=== PATIENT | male | born 1965 | race Caucasian/White ===

== ENCOUNTER 2019-05-11 12:25 | Emergency (ER) | payer OTHER, MEDICAID, SELFPAY ==
[2019-05-11 12:30] VITALS: BP 146/88; PULSE 83; RESP 16; TEMP 36.1; O2SAT 98; BMI 26.3
[2019-05-11 14:25] LABS: Add Manual Diff / Slide Review NO; Basophils Absolute Auto 0 /uL (0-100); Basophils Percent Auto 0.9 % (0-2); Eosinophils Absolute Auto 100 /uL (0-450); Eosinophils Percent Auto 1.5 % (2-4); Hematocrit 43.8 % (41-53); Hemoglobin 15.1 g/dL (13.5-17.5); Lymphocytes Absolute Auto 1000 /uL (1100-4500); Lymphocytes Percent Auto 20.6 % (25-40); Mean Corpuscular HGB Conc 34.5 % (30-36); Mean Corpuscular Hemoglobin 31.4 PG (26-34); Monocytes Absolute Auto 500 /uL (0-900); Monocytes Percent Auto 9.8 % (3-14); Neutrophils Absolute Auto 3100 /uL (1500-7000); Neutrophils Percent Auto 67.2 % (50-75); Platelet Count 259 X10^3/uL (150-400); Red Blood Cell Count 4.81 X10^6/uL (4.5-5.9); Red Cell Distribution Width 13.9 % (11.6-14.8); White Blood Cell Count 4.7 X10^3/uL (4.5-11.0)
[2019-05-11 14:32] LABS: INR 0.9 (0.9-1.3); Prothrombin Time 10.4 SECONDS (10.1-12.7)
[2019-05-11 14:35] LABS: PTT Partial Thromboplastin Tim 34 SECONDS (26.4-36.2)
[2019-05-11 14:38] LABS: Alanine Aminotransferase 22 IU/L (21-72); Albumin 4.4 g/dL (3.5-5.0); Albumin Globulin Ratio 1.4 (1.0-2.8); Alkaline Phosphatase 60 U/L (38-126); Aspartate Aminotransferase 27 IU/L (17-59); BUN Creatinine Ratio 16.3 (6-22); Bilirubin Total 0.6 mg/dL (0.2-1.3); Blood Urea Nitrogen 13 mg/dL (9-20); Calcium 9.5 mg/dL (8.4-10.2); Carbon Dioxide 29 mmol/L (22-32); Chloride 102 mmol/L (98-107); Estimated Glomerular Filt Rate > 60.0 mL/min (>60); Globulin 3.1 g/dL (1.7-4.1); Glucose 113 mg/dL (70-100); HEMOLYSIS 21 (0-50); Potassium 4.5 mmol/L (3.4-5.1); Sodium 138 mmol/L (137-145); Total Protein 7.5 g/dL (6.3-8.2)
[2019-05-11 15:03] VITALS: BP 162/107; PULSE 83; RESP 15; O2SAT 96
--- NOTE | 2019-05-11 17:34 | ED_ITS ---
HPI - Epistaxis <LINDSEY Abarca - Last Filed: 05/11/19 17:45> General Chief complaint: Nasal Problem Stated complaint: bloody noses that wont stop Time Seen by Provider: 05/11/19 13:24 Source: patient and family Mode of arrival: Ambulatory Limitations: no limitations History of Present Illness HPI Narrative: The patient is a 54-year-old nonsmoker with history of hypertension who presents with a chief complaint of occasional nose bleeds over the past few days. He states this started 2 days ago. He states that he tried to lay flat on his back to help a nose bleed. He states it happened when he was working in his shop. He complains of blood running down the back of his throat on occasion. During my interview he states his bloody nose has stopped. He has tried pinching his nostrils to gather to stay stop the bleeding. He denies any clotting history of clotting disorders chest pain shortness of breath nausea vomiting or diarrhea. On my interview the patient's blood pressure is 146/88 with a heart rate of 83. The patient states that as he has tried to put Aquaphor up his right nostril. He states he has also used acute took to put bees wax solution of his nostril to try to prevent any dry nostrils. Related Data Allergies Allergy/AdvReac Type Severity Reaction Status Date / Time No Known Drug Allergies Allergy Verified 05/11/19 13:29 Review of Systems <LINDSEY Abarca - Last Filed: 05/11/19 17:45> Review of Systems Narrative: GENERAL: Denies chills, fatigue, malaise, fever, sweats. HEENT: See HPI RESPIRATORY: Denies dyspnea, cough, wheezing, hemoptysis, sputum. CARDIOVASCULAR: Denies chest pain, palpitations, orthopnea, edema, GASTROINTESTINAL: Denies nausea, vomiting, abdominal pain, diarrhea, constipation, melena. : Denies dysuria, frequency, incontinence, hematuria, urinary retention. MUSCULOSKELETAL: denies weakness, joint pain, or bony pain SKIN: Denies rash, skin lesions, or other NEUROLOGIC: Denies weakness, headache, numbness, change in speech, confusion, seizures, incoordination. PSYCHIATRIC: No concerning psychosocial issues. 12 point review of systems is negative except for those stated above PFSH <LINDSEY Abarca - Last Filed: 05/11/19 17:45> Social History Smoking Status: Never smoker Social History Smoking Status: Never smoker Exam <Yenifer Das [employer] - Last Filed: 05/11/19 17:45> Narrative Exam Narrative: GENERAL: This is a well-nourished, well-developed patient, no acute distress HEAD: Atraumatic. Normocephalic. No temporal or scalp tenderness. EYES: Pupils equal round and reactive. Extraocular motions intact. No scleral icterus. No injection or drainage. ENT: Nose without bleeding, purulent drainage or septal hematoma. Throat without erythema, tonsillar hypertrophy or exudate. Uvula midline. Airway patent. No active bleeding noted bilateral nares, no septal hematoma, no blood in back of throat on exam. Patient has dried blood in right naris. NECK: Trachea midline. No JVD or lymphadenopathy. Supple, nontender, no meningeal signs. CARDIOVASCULAR: Regular rate and rhythm without murmurs, gallops, or rubs. RESPIRATORY: Clear to auscultation. Breath sounds equal bilaterally. No wheezes, rales, or rhonchi. No cough. No increased respiratory effort. No accessory muscle use. GASTROINTESTINAL: Abdomen soft, non-tender, nondistended. No hepato- splenomegaly, or palpable masses. No guarding. EXTREMITIES: No clubbing, cyanosis, or edema. No joint tenderness, effusion, or edema noted. BACK: Nontender without deformity or crepitance. No flank tenderness. NEURO: AOx3. SKIN: No rash or erythema. Initial Vital Signs Initial Vital Signs: Vital Signs Temperature 96.9 F L 05/11/19 12:30 Pulse Rate 83 05/11/19 12:30 Respiratory Rate 16 05/11/19 12:30 Blood Pressure 146/88 H 05/11/19 12:30 Pulse Oximetry 98 05/11/19 12:30 <Laura Chris MD - Last Filed: 05/11/19 19:44> Initial Vital Signs Initial Vital Signs: Vital Signs Temperature 96.9 F L 05/11/19 12:30 Pulse Rate 83 05/11/19 12:30 Respiratory Rate 16 05/11/19 12:30 Blood Pressure 146/88 H 05/11/19 12:30 Pulse Oximetry 98 05/11/19 12:30 Course <LINDSEY Abarca - Last Filed: 05/11/19 17:45> Orders Ordered: ED Orders 05/11/19 14:17 Complete Blood Count AUTO DIFF Stat Comprehensive Metabolic Panel Stat Partial Thromboplastin Time Stat Prothrombin Time INR Stat Vital Signs Vital signs: Vital Signs - 8 hr 05/11/19 12:30 05/11/19 15:03 Temperature 96.9 F L Pulse Rate 83 83 Respiratory Rate 16 15 Blood Pressure 146/88 H 162/107 H Pulse Oximetry 98 96 <Laura Chris MD - Last Filed: 05/11/19 19:44> Orders Ordered: ED Orders 05/11/19 14:17 Complete Blood Count AUTO DIFF Stat Comprehensive Metabolic Panel Stat Partial Thromboplastin Time Stat Prothrombin Time INR Stat Vital Signs Vital signs: Vital Signs - 8 hr 05/11/19 12:30 05/11/19 15:03 Temperature 96.9 F L Pulse Rate 83 83 Respiratory Rate 16 15 Blood Pressure 146/88 H 162/107 H Pulse Oximetry 98 96 MDM - Epistaxis <LINDSEY Abarca - Last Filed: 05/11/19 17:45> Lab Data Result diagrams: 05/11/19 14:17 05/11/19 14:17 Labs: Lab Results 05/11/19 05/11/19 05/11/19 Range/Units 14:17 14:17 14:17 WBC 4.7 (4.5-11.0) X10^3/uL RBC 4.81 (4.5-5.9) X10^6/uL Hgb 15.1 (13.5-17.5) g/dL Hct 43.8 (41-53) % MCV 91.0 (80-100) fL MCH 31.4 (26-34) PG MCHC 34.5 (30-36) % RDW 13.9 (11.6-14.8) % Plt Count 259 (150-400) X10^3/uL Neut % (Auto) 67.2 (50-75) % Lymph % (Auto) 20.6 L (25-40) % [place] % (Auto) 9.8 (3-14) % Eos % (Auto) 1.5 L (2-4) % Baso % (Auto) 0.9 (0-2) % Neut # (Auto) 3100 (3479-8752) /uL Lymph # (Auto) 1000 L (3637-1137) /uL [place] # (Auto) 500 (0-900) /uL Eos # (Auto) 100 (0-450) /uL Baso # (Auto) 0 (0-100) /uL PT 10.4 (10.1-12.7) SECONDS INR 0.9 (0.9-1.3) APTT 34 (26.4-36.2) SECONDS Sodium 138 (137-145) mmol/L Potassium 4.5 (3.4-5.1) mmol/L Chloride 102 (98-107) mmol/L Carbon Dioxide 29 (22-32) mmol/L BUN 13 (9-20) mg/dL Creatinine 0.80 (0.66-1.25) mg/dL Estimated GFR > 60.0 (>60) mL/min BUN/Creatinine Ratio 16.3 (6-22) Glucose 113 H (70-100) mg/dL Calcium 9.5 (8.4-10.2) mg/dL Total Bilirubin 0.6 (0.2-1.3) mg/dL AST 27 (17-59) IU/L ALT 22 (21-72) IU/L Alkaline Phosphatase 60 (38-126) U/L Total Protein 7.5 (6.3-8.2) g/dL Albumin 4.4 (3.5-5.0) g/dL Globulin 3.1 (1.7-4.1) g/dL Albumin/Globulin Ratio 1.4 (1.0-2.8) MDM Narrative Medical decision making narrative: The patient is a 54-year-old male who presents with a chief complaint of a nosebleed on and off for the past 2 days. He has no active bleeding on my exam, has an SBP in the 140s, and stable vital signs. I did lab work as he was concerned about blood loss. He has no abnormalities to his H and H, PT INR etc. The patient requested to go. He was educated on the use of a nose clip. I encouraged follow-up with PCP and he scheduled in a PCP appointment for tomorrow. Discussed coming back to the ER for any acute concerns such as passing out, severe hemorrhage etc. Patient has no questions or concerns upon discharge. <Laura Chris MD - Last Filed: 05/11/19 19:44> Lab Data Labs: Lab Results 05/11/19 05/11/19 05/11/19 Range/Units 14:17 14:17 14:17 WBC 4.7 (4.5-11.0) X10^3/uL RBC 4.81 (4.5-5.9) X10^6/uL Hgb 15.1 (13.5-17.5) g/dL Hct 43.8 (41-53) % MCV 91.0 (80-100) fL MCH 31.4 (26-34) PG MCHC 34.5 (30-36) % RDW 13.9 (11.6-14.8) % Plt Count 259 (150-400) X10^3/uL Neut % (Auto) 67.2 (50-75) % Lymph % (Auto) 20.6 L (25-40) % [place] % (Auto) 9.8 (3-14) % Eos % (Auto) 1.5 L (2-4) % Baso % (Auto) 0.9 (0-2) % Neut # (Auto) 3100 (0600-4790) /uL Lymph # (Auto) 1000 L (2928-9286) /uL [place] # (Auto) 500 (0-900) /uL Eos # (Auto) 100 (0-450) /uL Baso # (Auto) 0 (0-100) /uL PT 10.4 (10.1-12.7) SECONDS INR 0.9 (0.9-1.3) APTT 34 (26.4-36.2) SECONDS Sodium 138 (137-145) mmol/L Potassium 4.5 (3.4-5.1) mmol/L Chloride 102 (98-107) mmol/L Carbon Dioxide 29 (22-32) mmol/L BUN 13 (9-20) mg/dL Creatinine 0.80 (0.66-1.25) mg/dL Estimated GFR > 60.0 (>60) mL/min BUN/Creatinine Ratio 16.3 (6-22) Glucose 113 H (70-100) mg/dL Calcium 9.5 (8.4-10.2) mg/dL Total Bilirubin 0.6 (0.2-1.3) mg/dL AST 27 (17-59) IU/L ALT 22 (21-72) IU/L Alkaline Phosphatase 60 (38-126) U/L Total Protein 7.5 (6.3-8.2) g/dL Albumin 4.4 (3.5-5.0) g/dL Globulin 3.1 (1.7-4.1) g/dL Albumin/Globulin Ratio 1.4 (1.0-2.8) Discharge Plan Departure Patient Disposition: Home Clinical Impression: Epistaxis Discharge Date/Time: 05/11/19 15:00 Instructions: DI for Nosebleed Activity Restrictions/Additional Instructions: Your lab work today showed no acute abnormalities regarding your blood counts. Please follow up with primary care provider as scheduled. Please come back to emergency department for any acute concerns such as passing out, severe bleeding etc
== END 2019-05-11 15:00 | disposition home or self-care (01) ==
PROVIDERS: Emergency Provider Nurse Practitioner Family
DX: R04.0 Epistaxis (principal)
CPT/HCPCS: 36415; 80053; 85025; 85610; 85730; 99282; 99283